=== PATIENT | female | born 1985 | race Native Hawaiian/Other Pacific Islander ===

== ENCOUNTER 2017-03-09 21:36 | Emergency (ER) | payer OTHER ==
[2017-03-09 21:48] VITALS: BMI 25.7
--- NOTE | 2017-03-09 21:52 | OBHP ---
Datetime: 03/09/2017 21:49 IP Adm Impression: , intrauterine Admit Comment, IP Provider: at 38weeks came her with c/o pain nirrg started at 4 pm, no vb, lo f,+fm. pt has previius c/s and request . obhx 1 x c/s pmh de med pnv all nkda psh c/s soch de ve closed a/p at 38weeks previous c/s with pain npo/ivf ua cont fidelia and efm cont close observtion Pelvic Type - PN: Adequate Extremities - PN: Normal Abdomen - PN: Normal Back - PN: Normal Breast - PN: Normal Lungs - PN: Normal Heart - PN: Normal Thyroid - PN: Normal Neurologic - PN: Normal HEENT - PN: Normal General - PN: Normal FHR - Baseline A Provider: 130 Contraction Comments Provider: occ Comments, ACOG Physical Exam: gravid,non ten ext no edema,no calf ten EGA AdmitDate IP: 38.0 Vital Signs Provider: Reviewed; Within Normal Limits IP Chief Complaint: Uterine contractions; Maternal discomfort NICHD Variability Prov Fetus A: Moderate 6-25bpm NICHD Accel Fetus A IP Provider: 15X15 FHR Category Provider Fetus A: Category I Dilatation, Provider: 0 Effacement, Provider: 0 Station, Provider: -3 Genitourinary Exam: Normal DTRs - PN: Normal
[2017-03-09] MEDS ORDERED: Lactated Ringer's 1,000 ML IV SCH (22:00)
[2017-03-09 22:06] LABS: SQUAMOUS EPITHIAL 1 /hpf (0-5); URINE BILIRUBIN NEGATIVE (NEGATIVE); URINE BLOOD NEGATIVE (NEGATIVE); URINE CLARITY Clear (Clear); URINE COLOR Colorless (YELLOW); URINE GLUCOSE (UA) NORMAL (Normal); URINE LEUKOCYTE ESTERASE NEG Leu/uL (Negative); URINE NITRATE NEGATIVE (NEGATIVE); URINE PROTEIN NEGATIVE (NEGATIVE); URINE UROBILINOGEN NORMAL mg/dL (0.2-1.0)
--- NOTE | 2017-03-09 22:20 | OBDCSUM ---
Datetime: 03/09/2017 22:19 Discharged to, Provider: Home Follow up at, Provider: saturday Follow up in weeks, Provider: dr catalina Taylor Activity Restrictions: Minimize stair-climbing; No sexual activity; Nothing in vagina - Interc ourse, tampons, douche Discharge Comment, Provider: akira home labor ins given no sex f/u pmd on saturday Discharge Diagnosis Prov Other: 38weeks previous c/s nst
--- NOTE | 2017-03-09 22:20 | OBHP ---
Datetime: 03/09/2017 21:49 Admit Comment, IP Provider: at 38weeks came her with c/o pain nirrg started at 4 pm, no vb, lo f,+fm. pt has previius c/s and request . obhx 1 x c/s pmh de med pnv all nkda psh c/s soch de ve closed a/p at 38weeks previous c/s with pain npo/ivf ua cont fidelia and efm cont close observtion 22.30 pt was seen feels better, no pain . ua neg pt wants vbsac plan dc home labor ins given no sex f/u pmd on saturday EGA AdmitDate IP: 38.0
[2017-03-10 03:00] VITALS: BP 101/61; PULSE 81; RESP 18
== END 2017-03-09 22:30 | disposition home or self-care (01) ==
LOC: C.EROB 21:36
DX: O47.1 False labor at or after 37 completed weeks of gestation (principal); Z3A.38 38 weeks gestation of pregnancy
CPT/HCPCS: 81001; 99283; J7120

== ENCOUNTER 2017-03-15 10:35 | Inpatient (IN) | payer OTHER ==
[2017-03-15 10:53] VITALS: BMI 21.9
[2017-03-15] MEDS ORDERED: Sodium Citrate/Citric Acid 15 ml Sol PO ONE (10:54)
[2017-03-15] MEDS ORDERED: cefOXitin IV 2 gm in Dextrose 2 GM/50 ML BAG IVPB ONE (10:54)
[2017-03-15] MEDS: Lactated Ringer's 1,000 ML IV SCH ×2 (11:01→12:58)
--- NOTE | 2017-03-15 11:11 | OBADHP ---
Datetime: 03/15/2017 11:07 Admit Comment, IP Provider: 31 y/o @ 38.6 wks GA by LMP, first treimeer US ALEKSANDR // c/o l ower back pain 5/10 with new onsent of contraction increasing intensity and frquency deie lof, +FM. pt reports vaginal bleeding x 1 episodes yesterfay brign red now improved Ante uncomplicated care OB: FT CXS 6lbs, sab BLADE OPERATOR: denies abnorlma pap, fibroids, ovarin cyst, STI PMH: migraines well controlled PSH: CxS FHX: non contribuotry SHX: negatieve etop, tobacco/drugs MEDS: pnv A/P 011 @ 38.6 wks GA with previous cesearean section in early labor -admit to L+D -npo, ivf -admissin labs -cont toco and efm -ancef -abodmina prep -kulkarni to gravity -scds Pelvic Type - PN: Adequate Extremities - PN: Normal Abdomen - PN: Normal Back - PN: Normal Breast - PN: Normal Lungs - PN: Normal Heart - PN: Normal Thyroid - PN: Normal Neurologic - PN: Normal HEENT - PN: Normal General - PN: Normal Weight - Estimated: 3200 Presentation-Admit: Vertex FHR - Baseline A Provider: 125 Membranes, Provider: Intact Gestation - Est Wks by US: 38.6 IP Hx Assessment: The History has been Reviewed and is Current Vital Signs Provider: Reviewed; Within Normal Limits IP Chief Complaint: Uterine contractions NICHD Variability Prov Fetus A: Moderate 6-25bpm FHR Category Provider Fetus A: Category I Dilatation, Provider: 2 Effacement, Provider: 30 Station, Provider: -3 Genitourinary Exam: Normal DTRs - PN: Normal EGA AdmitDate IP: 38.6 IP Adm Impression: Term, intrauterine IP Admit Plan: Admit to unit Datetime: 03/09/2017 21:49 Contraction Comments Provider: occ Comments, ACOG Physical Exam: gravid,non ten ext no edema,no calf ten NICHD Accel Fetus A IP Provider: 15X15
[2017-03-15 11:21] LABS: BASO % 0.3 % (0.0-2.0); EOS # 0.1 K/uL (0.0-0.7); EOS % 0.6 % (0.0-4.0); HEMOGLOBIN 11.6 g/dL (11.0-16.0); LYMPH % 20.8 % (20.0-40.0); MEAN CORPUSCULAR HGB CONC 33.3 g/dL (33.0-37.0); MONO # 0.5 K/uL (0.0-0.8); MONO % 4.8 % (0.0-10.0); NEUT % 73.5 % (50.0-75.0); RBC 4.47 Mil/uL (3.80-5.20); RED CELL DISTRIBUTION WIDTH 23.1 % (11.5-14.5); WHITE BLOOD COUNT 9.5 K/uL (4.8-10.8)
[2017-03-15 11:26] LABS: SQUAMOUS EPITHIAL 24 /hpf (0-5); URINE BACTERIA RARE (<OCC); URINE BILIRUBIN NEGATIVE (NEGATIVE); URINE BLOOD 2+ (NEGATIVE); URINE CLARITY Hazy (Clear); URINE COLOR Yellow (YELLOW); URINE GLUCOSE (UA) NORMAL (Normal); URINE LEUKOCYTE ESTERASE NEG Leu/uL (Negative); URINE NITRATE NEGATIVE (NEGATIVE); URINE PROTEIN NEGATIVE (NEGATIVE); URINE UROBILINOGEN NORMAL mg/dL (0.2-1.0)
[2017-03-15 11:31] LABS: ALBUMIN 3.7 g/dL (3.5-5.0); ALT/SGPT 15 U/L (9-52); AST/SGOT 20 U/L (14-36); BLOOD UREA NITROGEN 7 mg/dL (7-17); CALCIUM 8.3 mg/dl (8.6-10.4); GFR AFRICAN-AMERICAN > 60; GFR NON-AFRICAN AMERICAN > 60
[2017-03-15] MEDS ORDERED: Sodium Citrate/Citric Acid 15 ml Sol ONE ×2 (13:06→14:08)
[2017-03-15] MEDS ORDERED: cefOXitin 2 GM in Sodium Chloride 0.9% 100 ML IV ONE (14:00)
[2017-03-15] MEDS ORDERED: Morphine 1 mg/ml preservative-free Inj(Duramorph) ONE (14:16)
[2017-03-15] MEDS ORDERED: Oxytocin 10 Units/ml Inj ONE (14:49)
[2017-03-15] MEDS ORDERED: Oxycodone/Acetaminophen 5/325 mg Tab PO PRN (15:34)
--- NOTE | 2017-03-15 15:35 | OBDS ---
DELIVERY PERSONNEL Nurse Computer Science Instructor Certified: N/A Delivery Doctor: Angel Pascual MD Scrub Nurse: Lyssa Baig OBT Technical Report Writer: Fely Turner RN Anesthesiologist: Brooks Rolled Glass Crosscutter: N/A MATERNAL INFORMATION Delivery Anesthesia: Spinal Maternal Complications: None Other Maternal Complications: repeat scheduled C/S Provider Comments: repaet cxs live male infant, agpar 9,9 weigt of 7lbs ebl 800 ml, nuchal cord x [address] Dimitry Ruiz surgicla producer assistant pediatrican presnt for dleiver LABOR SUMMARY EDC: 03/23/2017 00:00 No. Babies in Womb: 1 Attempted: No LABOR INFORMATION Reason for Induction: Not Applicable Oxytocin: N/A Group B Beta Strep: Negative Steroids Given: None Reason Steroids Not Administered: Not Applicable STAGES OF LABOR Stage 3 hrs: 0 Stage 3 min: 2 CSECTION DELIVERY Primary Indication: Repeat Elective CSection Urgency: Elective CSection Incidence: Repeat Labor: N/A Elective: Elective CSection Incision: Lower Uterine Transverse BABY A INFORMATION Infant Delivery Date/Time: 03/15/2017 14:57 Method of Delivery: Born in Route : No : N/A Forceps: N/A Vacuum Extraction: N/A Shoulder Dystocia : No SHOULDER DYSTOCIA BABY A Infant Delivery Date/Time: 03/15/2017 14:57 PRESENTATION/POSITION BABY A Presentation: Cephalic Cephalic Presentation: Vertex Vertex Position: N/A Breech Presentation: N/A PLACENTA INFORMATION BABY A Placenta Delivery Time : 03/15/2017 14:59 Placenta Method of Delivery: Manual Removal Placenta Status: Delivered SCORES BABY A Heart Rate 1 min: >100 bpm Resp Effort 1 min: Good Cry Reflex Irritability 1 min: Cough or Sneeze or Pulls Away Muscle Tone 1 min: Active Motion Color 1 min: Body [place], Extremities Blue Resuscitation Effort 1 min: Tactile Stimulation SCORE 1 MIN: 9 Heart Rate 5 min: >100 bpm Resp Effort 5 min: Good Cry Reflex Irritability 5 min: Cough or Sneeze or Pulls Away Muscle Tone 5 min: Active Motion Color 5 min: Body [place], Extremities Blue SCORE 5 MIN: 9 INFANT INFORMATION BABY A Gestational Age at Delivery: 38.6 Gestational Status: Term Infant Outcome : Liveborn Condition : Stable Sex: Male IDENTIFICATION/MEDS BABY A ID Band Number: [id number] Sensor Number: [id number] Sensor Location : Cord Clamp WEIGHT/LENGTH BABY A Infant Birthweight (gms): 3190 Infant Weight (lb): 7 Infant Weight (oz): 0 Infant Length Inches: 19.00 Infant Length cms: 48.3 CORD INFORMATION BABY A No. Cord Vessels: 3 Nuchal Cord : Around Neck x1, Loose Nuchal Cord Other: N/A True Knot: N/A Cord Blood Taken: Yes Banking/Donate Info: N/A Infant Suction: Mouth; Nose ASSESSMENT BABY A Complications: None Physical Findings at Delivery: Within Normal Limits Respirations: Appears Normal Railroad Watchman/ALS Called : Yes Infant Care By: Dr. Ainsley Thomas RN
--- NOTE | 2017-03-15 15:37 | PCM.SURG1 ---
Surgeon's Initial Post Op Note - Surgeon's Notes Surgeon: Sonia Pascual MD Credit Report Checker: Dimitry Ruiz MD Type of Anesthesia: Spinal Pre-Operative Diagnosis: previus cesearen section, contractign in labor for repeat cesearen section Operative Findings: live male infant, cephlaic presentation, apgars 9,9 weigh tof 7 pounds. normal appearing uterus, tubes adn ovarines bilaterally,nuchal cord x 1 reducted, meconium fluid. Personal Driver presnt for delivery. Dr Dimitry Ruiz was neurosurgical nurse and present for entire case adn essential in gainign entry, retraction, exposure, holding bladder blade, helpign to deliver to infant, closign all layers, obtainign hemostasis. Post-Operative Diagnosis: same as above Operation Performed: Repeat Low transverse Cesearean section Specimen/Specimens Removed: placenta Estimated Blood Loss: EBL {In ML}: 800 Blood Products Given: N/A Drains Used: No Drains Post-Op Condition: Good Date of Surgery/Procedure: 03/15/17 Time of Surgery/Procedure: 14:00
--- NOTE | 2017-03-15 17:37 | OP ---
PROCEDURE DATE: 03/15/2017 PREOPERATIVE DIAGNOSIS: Previous section, karsten in labor, for repeat section. POSTOPERATIVE DIAGNOSIS: Previous section, karsten in labor, for repeat section. OPERATION PERFORMED: Repeat low-transverse section. SURGEON: Sonia Pascual MD. FARMWORKER BROODER FARM: Dimitry Ruiz MD. TYPE OF ANESTHESIA: Spinal. OPERATIVE NOTE FINDINGS: Live male , cephalic presentation, Apgars 9 and 9, weight is 7 pounds. Normal-appearing uterus, tubes and ovaries bilaterally. Nuchal cord x1 reduced. Meconium fluid. Job Interviewer was present for the delivery. Dr. Dimitry Ruiz, volunteer services assistant, was present for the entire case and assisted in gaining entry, retraction, exposure, holding the bladder blade, helping to deliver the infant, closing all layers and obtaining hemostasis. ESTIMATED BLOOD LOSS: 800 mL. BLOOD PRODUCTS: None. COMPLICATIONS: None. SPECIMEN: Placenta. DESCRIPTION OF PROCEDURE: The patient was taken to the operating room where she was given spinal anesthesia. Once it was found to be adequate, she was positioned on the operating table in dorsal supine position with the legs supported using stirrups. The patient was then prepped and draped in the usual sterile fashion. A time-out confirmed correct patient and correct procedure. A Pfannenstiel skin incision was made through the entire existing incision with a scalpel and carried down to the underlying fascia with a Bovie. The fascia was incised in the midline. The incision was extended laterally with the Bovie. The inferior aspect of the fascial incision was grasped with Allis and Huyen clamps and the underlying rectus muscles were dissected off bluntly using Alejandro scissors. Attention was then turned to the superior aspect of the incision which in a similar fashion was grasped with the Huyen clamps and the underlying rectus muscles were dissected off bluntly using the Bovie. Rectus muscles were then bluntly in the midline. Peritoneum identified in the clear space, entered bluntly. The incision was extended laterally and superiorly until there was good visualization of the bladder. The lower end of the Tammy was then reinserted. Lower uterine segment was incised in a transverse fashion. The uterine incision was extended laterally bluntly. Amniotic membranes were ruptured and the there was meconium fluid noted. Nuchal cord was noted and the surgeon's hand entered into the uterine cavity. 's head was delivered atraumatically with removal of nuchal cord followed by delivery of the shoulders, followed by delivery of body. Umbilical cord was clamped and cut. Baby was handed off to the awaiting ship's captain. Cord blood and cord gases were collected and sent x2. The placenta was then delivered manually. The uterus was exteriorized, cleared off all clots and debris. The uterine incision was repaired with 0 Vicryl in a running continuous locked fashion. A second layer of the same suture was used to close the uterus in a running imbricated manner. There was good hemostasis at the uterine incision site. There was normal tubes and ovaries bilaterally. The uterus was then returned to the abdomen. The paracolic gutters were cleared off clots and debris. The peritoneum was reapproximated and closed with 2-0 chromic in a running continuous fashion. The rectus was reapproximated and closed with 2-0 chromic in an interrupted manner. The skin was reapproximated with 3-0 Monocryl in running subcuticular fashion. At the end of the procedure, all needles, sponge and instrument counts were noted as correct x2. The patient tolerated the procedure well and was transferred to the recovery room in stable condition. Sonia Pascual MD
[2017-03-15] MEDS: Simethicone 80 mg Chewtab PO SCH ×2 (18:49→22:30)
[2017-03-16] MEDS: Oxycodone/Acetaminophen 5/325 mg Tab PO PRN ×4 (06:47→22:17)
--- NOTE | 2017-03-16 07:35 | OBPPN ---
Datetime: 03/16/2017 07:33 PP Pain Prov: Within normal limits PP Nausea Prov: Denies PP Flatus Prov: No PP BM Prov: No PP Breasts Prov: Normal PP Heart Prov: Normal PP Lungs Prov: Normal PP Abdomen/Uterus Prov: Normal PP Lochia Prov: Normal PP Vulva/Perineum Prov: Normal PP CVA Tenderness Prov: Normal PP Extremities Prov: Normal PP C/S Incision Prov: Normal PP Progress Prov: Normal PP Comments Phys Exam Prov: incsion c/di PP Impression Prov: Normal progression PP Plan Prov: Continue present management PP Progress Note Prov: pt seen and examiend and reprot pain controlled with medicain. pt out of bed to chair, no tyet ambuaitng or voiding, pt denies any fever, chills, nause, vomiting, cp, sob VSS PE see aov A/P s/p RPLTCS POD #1 -pain manaamgent -advance diet as toelrated -encoaurge amabiton, breast feeding -am labs Vital Signs Provider PP: Reviewed; Within Normal Limits
[2017-03-16 08:03] VITALS: RESP 18
[2017-03-16 08:10] LABS: BASO % 0.3 % (0.0-2.0); EOS % 0.1 % (0.0-4.0); HEMOGLOBIN 10.1 g/dL (11.0-16.0); LYMPH # 1.3 K/uL (1.0-4.3); LYMPH % 9.3 % (20.0-40.0); MEAN CELL VOLUME 77.7 fL (81.0-99.0); MEAN CORPUSCULAR HEMOGLOBIN 26.2 pg (27.0-31.0); MEAN CORPUSCULAR HGB CONC 33.7 g/dL (33.0-37.0); MONO # 0.6 K/uL (0.0-0.8); MONO % 4.3 % (0.0-10.0); NEUT # 12.5 K/uL (1.8-7.0); PLATELET COUNT 207 K/uL (130-400); RBC 3.87 Mil/uL (3.80-5.20); RED CELL DISTRIBUTION WIDTH 23.1 % (11.5-14.5); WHITE BLOOD COUNT 14.5 K/uL (4.8-10.8)
[2017-03-16 08:29] LABS: ALB/GLOB RATIO 0.9 (1.0-2.1); ALBUMIN 2.7 g/dL (3.5-5.0); ALT/SGPT 28 U/L (9-52); AST/SGOT 38 U/L (14-36); BLOOD UREA NITROGEN 7 mg/dL (7-17); CALCIUM 7.8 mg/dl (8.6-10.4); GFR AFRICAN-AMERICAN > 60; GFR NON-AFRICAN AMERICAN > 60
[2017-03-16] MEDS: Prenatal Multivit/Folic Acid/Iron Tab PO SCH (09:21)
[2017-03-16] MEDS: Simethicone 80 mg Chewtab PO SCH ×4 (09:21→22:18)
[2017-03-16 11:41] LABS: BANDS 1 % (0-2); LYMPHOCYTE 11 % (20-40); MONOCYTE 7 % (0-10); NEUTROPHIL 81 % (50-75); TOTAL CELLS COUNTED 100
[2017-03-16 11:42] LABS: PLATELET ESTIMATE NORMAL (NORMAL)
[2017-03-16 11:44] LABS: ANISOCYTOSIS SLIGHT; HYPOCHROMIC SLIGHT; MICROCYTOSIS SLIGHT; OVALOCYTES SLIGHT; POIKILOCYTOSIS SLIGHT; POLYCHROMIC SLIGHT
[2017-03-16] MEDS ORDERED: Bisacodyl 5mg EC Tab PO ONE (15:34)
[2017-03-16] MEDS ORDERED: Influenza Vaccine 60 mcg/0.5 mL SYR (4YR UP) IM ONE (19:55)
[2017-03-17 07:56] VITALS: BP 94/59; PULSE 84; TEMP 97.8; O2SAT 100
[2017-03-17] MEDS: Simethicone 80 mg Chewtab PO SCH (09:11)
[2017-03-17] MEDS: Prenatal Multivit/Folic Acid/Iron Tab PO SCH (09:11)
[2017-03-17] MEDS: Oxycodone/Acetaminophen 5/325 mg Tab PO PRN (09:13)
--- NOTE | 2017-03-18 13:21 | OBPPN ---
Datetime: 03/17/2017 13:19 PP Pain Prov: Within normal limits PP Nausea Prov: Denies PP Flatus Prov: Yes PP BM Prov: Yes PP Breasts Prov: Normal PP Heart Prov: Normal PP Lungs Prov: Normal PP Abdomen/Uterus Prov: Normal PP Lochia Prov: Normal PP Vulva/Perineum Prov: Normal PP CVA Tenderness Prov: Normal PP Extremities Prov: Normal PP C/S Incision Prov: Normal PP Progress Prov: Normal PP Comments Phys Exam Prov: incsion c/d/i PP Impression Prov: Normal progression PP Plan Prov: Continue present management PP Progress Note Prov: delayed entry pt seen and examiend and reprot pain controlled with medicain. ambuaitng and voiding, pt denies an y fever, chills, nause, vomiting, cp, sob. dneies any heavy bleeding, lightheadness, dizzyness. VSS PE see aov A/P s/p RPLTCS POD #2 requesting discharge dc home rto 1 week precautin sgiven IP PP Procedures: None Vital Signs Provider PP: Reviewed; Within Normal Limits
--- NOTE | 2017-03-18 13:23 | OBDCSUM ---
Datetime: 03/17/2017 07:39 Discharge Instructions, Provider: Routine instructions given Discharge Diagnosis, Provider: Term Delivered Contraception discussed, Prov: Yes Discharge Comment, Provider: precautin given Contraception after Delivery: Not Planning to Use
== END 2017-03-17 12:31 | disposition home or self-care (01) | DRG 766 ==
LOC: C.EROB 10:35 → C.4D 10:45 → C.4M 18:30
PROVIDERS: ADMIT Obstetrics & Gynecology; ATTEND Obstetrics & Gynecology
PROC: 10D00Z1 Extraction of Products of Conception, Low, Open Approach (ICD-10-PCS; principal; 2017-03-15)
DX: O34.211 Maternal care for low transverse scar from previous cesarean delivery (principal); O69.81X0 Labor and delivery complicated by cord around neck, without compression, not applicable or unspecified; Z3A.38 38 weeks gestation of pregnancy; Z37.0 Single live birth